=== PATIENT | female | born 1970 | race Caucasian/White ===

== ENCOUNTER → 2016-11-10 | Outpatient (CLI) | payer OTHER ==
[~2016-11-10] MED LIST: BUPIVACAINE 0.5% 50 ML VIAL. IJ ONE; IOHEXOL 300 MG/ML 50 ML VIAL. INT ART ONE; LIDOCAINE 1% Multi-Dose 20 ML VIAL. ID ONE; methylPREDNISolone ACETATE 40 MG/ML VIAL. INT ART ONE
--- NOTE | 2016-11-10 13:42 | KCIC ---
PROCEDURE Therapeutic right hip injection using fluoroscopic guidance. HISTORY Hip pain. TECHNIQUE The procedure was explained to the patient as were potential risks, including infection, bleeding or allergic reaction. All questions were answered. Informed written and verbal consent was obtained. The hip was prepped and draped in the usual sterile manner. Following administration of local anesthetic, a 22-gauge spinal needle was advanced into the hip joint without difficulty, with care taken to avoid the vascular structures. Stylet was removed and following negative aspiration, a mixture of 4 cc Omnipaque-300, 2 cc (80 mg) Depo-Medrol, 4 cc 0.5% Marcaine and 4 cc 1% lidocaine were injected without difficulty. Fluoroscopy demonstrates uniform and satisfactory distribution of the injection through the hip. The needle was removed. There was good hemostasis at the injection site. The patient left in stable condition without immediate complication. The patient was given postprocedural instructions, instructed to contact us or the emergency room if there are any complications. A single spot image was obtained. FLUOROSCOPY TIME: 14 seconds Electronically signed by: Balaji Horton MD (Nov 10, 2016 13:41:25)
== END | disposition home or self-care (01) ==
LOC: KCIC 10:19
PROVIDERS: ATTEND Orthopaedic Surgery Adult Reconstructive Orthopaedic Surgery
DX: M25.551 Pain in right hip (principal)
CPT/HCPCS: 20610; J1030; J3490; Q9967

== ENCOUNTER → 2017-05-10 | Outpatient (CLI) | payer OTHER ==
--- NOTE | 2017-05-10 16:21 | KCIC ---
History: Increasing pain bilateral hands for 3 years, right worse than left. Comparison: None. Findings: AP view of the pelvis. No acute fracture or dislocation is identified. AP and frog-leg views of the right hip. Mild right hip degeneration is seen with marginal osteophyte formation. There is preservation of the joint space. AP and frog-leg views of left hip. No acute fracture or dislocation is identified. No significant degeneration is seen. Impression: 1. Mild right hip degeneration. 2. Unremarkable left hip radiographs. Electronically signed by: Balaji Jeter MD (05/10/2017 4:18 PM) [place] [id number]
== END | disposition home or self-care (01) ==
LOC: KCIC 14:05
PROVIDERS: ATTEND Orthopaedic Surgery
DX: M16.11 Unilateral primary osteoarthritis, right hip (principal); M25.552 Pain in left hip
CPT/HCPCS: 73521

== ENCOUNTER → 2017-06-04 | Outpatient (CLI) | payer OTHER ==
--- NOTE | 2017-06-04 10:49 | KCIC ---
CT right hip without contrast dated 06/04/2017. Comparison made to MRI dated 12/08/2015. Clinical indication: Right hip pain. TECHNIQUE: Contiguous axial imaging of the right hip was performed with thin cut coronal and sagittal reconstructions. FINDINGS: Moderate hypertrophic change of the right hip joint with asymmetric joint space narrowing of the anterior weightbearing surfaces femoral head and acetabulum. There are prominent subchondral cysts that have increased compared to the prior MRI. Prominent marginal osteophytes. No intra-articular loose body. No apparent joint effusion. Osseous structures are otherwise intact. No evidence of fracture. Alignment anatomic. Visualized soft tissue structures are unremarkable. Limited imaged portions of the pelvis are unremarkable. IMPRESSION: Moderate right hip DJD with progressive joint space narrowing and probable full-thickness cartilage loss at the anterior weightbearing surfaces of femoral head and acetabulum. There are prominent subchondral cysts that have increased from 12/08/2015 MRI. Electronically signed by: Balaji Bates MD (06/04/2017 10:46 AM) [id number]
== END | disposition home or self-care (01) ==
LOC: KCIC CT 08:49
PROVIDERS: ATTEND Orthopaedic Surgery
DX: M16.11 Unilateral primary osteoarthritis, right hip (principal)
CPT/HCPCS: 73700

== ENCOUNTER → 2018-06-03 | Outpatient (CLI) | payer OTHER | END | disposition home or self-care (01) | LOC: KCIC 14:16 | DX: M25.541 Pain in joints of right hand (principal); M25.542 Pain in joints of left hand | CPT/HCPCS: 73130 ==

== ENCOUNTER → 2018-07-22 | Outpatient (CLI) | payer OTHER ==
--- NOTE | 2018-07-22 10:39 | KCIC ---
EXAM: MRI RIGHT KNEE DATE: 07/22/2018 9:30 AM CLINICAL INDICATION: Right knee pain-generalized right knee pain for 8 months with associated swelling. COMPARISON: None. TECHNIQUE: Multiplanar multisequence MR imaging of the right knee was performed without IV contrast. FINDINGS: No significant knee joint effusion. There is a small Slade's cyst. ACL and PCL are intact. The MCL and fibular collateral ligament are intact. The biceps femoris and IT band are normal in signal and morphology, intact. Popliteus tendon is normal. Borderline lateral patellar tracking. Mild edema within the suprapatellar fat pad may be seen with anterior knee pain/impingement. Extensor mechanism is otherwise intact. Menisci: Medial and lateral menisci are intact. Lateral patellar facet chondral thinning with intermittent fissuring, most prominent within the medial patellar facet. Intermittent fissuring at the lateral weightbearing surface of the medial femoral condyle. No significant subchondral marrow edema. Small tricompartmental osteophytes are seen. IMPRESSION: 1. Mild increased signal within the suprapatellar fat pad may be seen with anterior knee pain/impingement. 2. Left knee joint osteoarthritis with mild medial and patellofemoral chondromalacia. 3. Small Slade's cyst. 4. Lateral patellar tracking. Electronically signed by: Rigoberto Ureña MD (07/22/2018 10:36 AM) [id number]
== END | disposition home or self-care (01) ==
LOC: KCIC MRI 09:33
PROVIDERS: ATTEND Orthopaedic Surgery
DX: M17.0 Bilateral primary osteoarthritis of knee (principal); M22.42 Chondromalacia patellae, left knee; M22.41 Chondromalacia patellae, right knee; M71.20 Synovial cyst of popliteal space [Baker], unspecified knee
CPT/HCPCS: 73721

== ENCOUNTER → 2018-08-02 | Outpatient (CLI) | payer OTHER ==
--- NOTE | 2018-08-02 17:12 | KCIC ---
History: Low back pain without sciatica. Comparison: May 10, 2017. Findings: AP view of the pelvis. Iliac crests have been excluded from examination. Right total hip arthroplasty has been placed present with at least one acetabular screw. There are 2 cerclage wires surrounding the femoral stem. No hardware complication is identified. No acute fracture or dislocation is seen. Impression: 1. Right total hip arthroplasty. 2. No acute osseous abnormality identified. Electronically signed by: Balaji Jeter MD (08/02/2018 5:08 PM) [facility]
--- NOTE | 2018-08-03 09:01 | KCIC ---
Examination: 4 views of the lumbar spine HISTORY: History of low back pain COMPARISON: None available FINDINGS: The lumbar vertebral body heights are maintained. No evidence of listhesis. Mild intervertebral disc height loss identified in the lumbar spine. The facets are well aligned. Mild degenerative changes identified in the facet joints. No evidence of listhesis. No obvious spondylolysis. IMPRESSION: Mild degenerative changes lumbar spine. If pain persists consider MRI follow-up. Electronically signed by: Tae Marcelino MD (08/03/2018 8:57 AM) [facility]
== END | disposition home or self-care (01) ==
LOC: KCIC 10:31
PROVIDERS: ATTEND Internal Medicine Rheumatology
DX: M47.896 Other spondylosis, lumbar region (principal); R29.890 Loss of height; M17.0 Bilateral primary osteoarthritis of knee
CPT/HCPCS: 72110; 72170

== ENCOUNTER → 2019-02-06 | Outpatient (CLI) | payer OTHER ==
--- NOTE | 2019-02-06 13:56 | KCIC ---
MRI Brain without contrast History: Facial numbness, numbness and about the left eye and cheek Technique: Multiplanar, multisequential noncontrast MR imaging was performed of the brain. Comparison: None Findings: There is mild motion. There is no evidence of recent infarct or cytotoxic edema. The ventricles, sulci, and cisterns are within normal limits in size and configuration. There is no significant midline shift, intraaxial mass effect, or focal abnormal extra-axial fluid collection. There is mild encephalomalacia with cortical involvement of the left frontal lobe of the left anterior cranial fossa. There is preservation of the major intracranial flow-voids at the skull base. The mastoid air cells are aerated. The cerebellar tonsils are normal in location. There is no significant abnormality of the pineal gland or pituitary gland. There is patchy minimal ethmoid air cell and left maxillary sinus mucosal thickening. There is some deviation of the nasal septum to the right. There is nonspecific mild heterogeneity of the marrow of the nonexpanded clivus possibly related to residual red marrow. There is nonspecific increased CSF signal the optic nerve sheaths bilaterally. Impression: 1. There is no evidence of recent infarct. There is mild encephalomalacia with cortical involvement of the left frontal lobe of the left anterior cranial fossa, probably related to sequela of old trauma given location. 2. There is nonspecific increased CSF signal of the optic nerve sheaths bilaterally, may be incidental, no other imaging findings particularly suggestive of intracranial hypertension. Electronically signed by: Duran Mesa MD (02/06/2019 1:53 PM) [id number]
== END | disposition home or self-care (01) ==
LOC: KCIC MRI 12:48
PROVIDERS: ATTEND Family Medicine
DX: G93.89 Other specified disorders of brain (principal); J34.2 Deviated nasal septum
CPT/HCPCS: 70551

== ENCOUNTER → 2020-04-16 | Outpatient (CLI) | payer OTHER ==
--- NOTE | 2020-04-16 19:12 | RAD ---
EXAM: PET W CT SKULL TO MIDTHIGH EXAM DATE: 04/16/2020 INDICATION: Lung mass RADIOPHARMACEUTICAL: 13.1 mCi of F-18 Fluorodeoxyglucose (FDG) I.V. via the left antecubital fossa. TECHNIQUE: Patient weight: 195 pounds. Following at least four-hour fasting, the patient's blood glucose was 107 mg/dl. Approximately 1 hour after administration of FDG, overlapping emission scanning was performed from the orbital meatal line through the pelvis. A low-dose CT was performed for attenuation correction purposes and anatomic localization. Fused images of PET and CT were reviewed. Any standardized uptake values (SUV) reported are maximum values within a volume region of interest, expressed in gm/ml. COMPARISON: No relevant comparisons currently available. FINDINGS: PET: In the head and neck, markedly elevated FDG uptake is evident in the medial inferior right thyroid lobe abutting the trachea showing a max SUV of 11.4. No abnormal FDG uptake in the cervical lymph nodes. In the chest, no abnormal FDG uptake in the lungs. A 1.2 cm nodule abutting the right diaphragm in the right lower lobe is present and shows no abnormal FDG uptake above background. Mediastinal background activity shows a max SUV of 2.58. The lateral right breast shows focal FDG uptake to max SUV of 3.09. In the abdomen and pelvis, no abnormal FDG uptake is appreciated. Background activity in the liver shows a max SUV of 2.40.. CT: CT images of the head and neck showing enlarged thyroid gland, asymmetrically larger on the right. There is a relatively dense nodule abutting the trachea in the right thyroid lobe best appreciated on image 58 of 251 on the attenuation correction series 90,001 that could reflect the FDG avid nodule in the right thyroid gland. In the chest, a 1.5 cm right lower lobe pulmonary nodule is identified just above the diaphragm. No other pulmonary nodules or masses are identified. There is suggestion of subtle architectural distortion in dense breast tissue in the lateral right breast, best illustrated on image 90 that could correlate with the area of abnormal FDG uptake on PET. The abdomen and pelvis shows surgical changes from a previous cholecystectomy and right hip arthroplasty. IMPRESSION: 1. There is a right lower lobe pulmonary nodule measuring 1.5 cm that shows no abnormal FDG uptake. Consider follow-up in 3-6 months to assess stability or resolution. 2. Incidentally identified FDG avid architectural distortion in the lateral right breast noted. Although nonspecific, primary breast malignancy is not excluded. Diagnostic right mammography and targeted right breast ultrasound is recommended in further evaluation. 3. Enlarged thyroid gland with marked FDG avid uptake in the medial right thyroid lobe. Recommend targeted ultrasound of the thyroid gland in further evaluation. Electronically signed by: Joycelyn Horne MD (04/16/2020 7:09 PM) [id number]
== END ==
LOC: PETSC 08:31
PROVIDERS: ATTEND Internal Medicine Critical Care Medicine
DX: C80.1 Malignant (primary) neoplasm, unspecified (principal); R91.1 Solitary pulmonary nodule; E04.9 Nontoxic goiter, unspecified; Z90.49 Acquired absence of other specified parts of digestive tract; Z96.641 Presence of right artificial hip joint
CPT/HCPCS: 78815; A9552